=== PATIENT | male | born 1950 | race Two or more races ===

== ENCOUNTER 2022-10-06 09:50 | Inpatient (IN) | payer MEDICAID, OTHER ==
[~2022-10-06] VITALS: Ht 165.1 cm; Wt 75.3 kg
[2022-10-06 10:31] LABS: Basophils # (auto) 0.1 10 ^3/uL (0-0.2); Basophils % (auto) 1.1 % (0.0-2.0); Eosinophils # (auto) 0.2 10 ^3/uL (0-0.8); Eosinophils % (auto) 2.6 % (0.0-7.0); Hematocrit 41.4 % (41.0-53.0); Hemoglobin 13.9 g/dL (13.5-17.5); Lymphocytes # (auto) 0.8 10 ^3/uL (0.4-5.4); Mean Corpuscular Hemoglobin 29.4 pg (28.0-32.0); Mean Corpuscular Hgb Conc. 33.7 g/dL (32.0-36.0); Mean Corpuscular Volume 87.3 fL (80.0-100.0); Monocytes # (auto) 0.5 10 ^3/uL (0-1.3); Neutrophils # (auto) 5.9 10 ^3/uL (1.6-8.6); Neutrophils % (auto) 78.3 % (37.0-80.0); Nucleated Red Blood Cells % 0.1 %; Red Blood Cells 4.74 10^6/uL (4.5-5.90); Red Cell Distribution Width 14.2 % (11.8-14.3); White Blood Cell 7.5 10^3/uL (4.4-10.8)
[2022-10-06 10:56] LABS: Potassium 3.9 mmol/L (3.5-5.1)
[2022-10-06 11:01] LABS: Albumin 2.7 g/dL (3.4-5.0); BUN/Creatinine Ratio 10.8 (10.0-20.0); Bilirubin, Total 0.4 mg/dL (0.2-1.0); Calcium 8.3 mg/dL (8.5-10.1); Total Protein 7.3 g/dL (6.4-8.2)
[2022-10-06] MEDS ORDERED: IOHEXOL 350 MG/ML 100ML IJ ONE (14:29)
[2022-10-06] MEDS ORDERED: SODIUM CHLORIDE 0.9% 1,000 ML IV ONE (14:30)
[2022-10-06] MEDS ORDERED: MORPHINE SULFATE INJ 2 MG/ml SYRG IV PRN ×2 (14:30)
[2022-10-06] MEDS ORDERED: ASPirin 81 mg TAB PO ONE (14:30)
[2022-10-06] MEDS ORDERED: NITROGLYCERIN 0.4 MG SL TAB SL PRN (14:30)
[2022-10-06] MEDS ORDERED: ENOXAPARIN SOD 80 MG/0.8ML SYRINGE SC ONE (14:45)
[2022-10-06 15:10] LABS: Cholesterol 135 mg/dL (< 200); Triglycerides 92 mg/dL (< 150)
[2022-10-06 15:12] LABS: HDL Cholesterol 36 mg/dL (40-59); LDL Cholesterol 89 mg/dL (< 100)
[2022-10-06 15:38] LABS: Free T3 2.65 pg/mL (2.3-4.2); Free T4 (Free Thyroxine) 1.03 ng/dL (0.89-1.76)
[2022-10-06] MEDS ORDERED: ALBUTEROL SULF 2.5 MG/0.5ML(0.5%) NEB SOLN NEB SCH (18:00)
[2022-10-06] MEDS ORDERED: IPRATROPIUM BROM 0.5 MG/2.5ML INH SOL NEB SCH (18:00)
[2022-10-06] MEDS: ATORVASTATIN 20 MG TAB PO SCH (22:34)
[2022-10-06 22:35] VITALS: BP 102/51
[2022-10-06] MEDS: HYDROcodone-ACET 5/325MG TAB PO PRN (22:35)
[2022-10-07] MEDS: ALBUTEROL SULF 2.5 MG/0.5ML(0.5%) NEB SOLN NEB SCH ×4 (00:15→18:49)
[2022-10-07] MEDS: IPRATROPIUM BROM 0.5 MG/2.5ML INH SOL NEB SCH ×4 (00:15→18:49)
[2022-10-07 00:55] VITALS: BP 107/56
[2022-10-07] MEDS ORDERED: CETI-120 PO (01:29)
[2022-10-07] MEDS ORDERED: FLUT50SP NAS (01:29)
[2022-10-07] MEDS ORDERED: LEVO50TA7 PO (01:29)
[2022-10-07] MEDS ORDERED: OMEP1CAP70 PO (01:29)
[2022-10-07] MEDS ORDERED: GABA-1250 PO (01:29)
[2022-10-07] MEDS ORDERED: TRAM50TA2 PO (01:29)
[2022-10-07] MEDS ORDERED: TIZA-142 PO (01:29)
[2022-10-07 05:00] VITALS: BP 129/73
[2022-10-07] MEDS: HYDROcodone-ACET 5/325MG TAB PO PRN (06:14)
[2022-10-07 06:22] LABS: Basophils # (auto) 0 10 ^3/uL (0-0.2); Basophils % (auto) 0.6 % (0.0-2.0); Eosinophils # (auto) 0.5 10 ^3/uL (0-0.8); Eosinophils % (auto) 5.9 % (0.0-7.0); Hematocrit 40.6 % (41.0-53.0); Hemoglobin 13.6 g/dL (13.5-17.5); Lymphocytes # (auto) 0.9 10 ^3/uL (0.4-5.4); Lymphocytes % (auto) 10.5 % (10.0-50.0); Mean Corpuscular Hemoglobin 29.3 pg (28.0-32.0); Mean Corpuscular Hgb Conc. 33.4 g/dL (32.0-36.0); Mean Corpuscular Volume 87.5 fL (80.0-100.0); Monocytes # (auto) 0.4 10 ^3/uL (0-1.3); Monocytes % (auto) 4.9 % (0.0-12.0); Neutrophils # (auto) 6.4 10 ^3/uL (1.6-8.6); Neutrophils % (auto) 78.1 % (37.0-80.0); Nucleated Red Blood Cells % 0.2 %; Red Blood Cells 4.64 10^6/uL (4.5-5.90); Red Cell Distribution Width 14.4 % (11.8-14.3); White Blood Cell 8.2 10^3/uL (4.4-10.8)
[2022-10-07 06:33] LABS: Albumin 2.3 g/dL (3.4-5.0); BUN/Creatinine Ratio 11.1 (10.0-20.0); Calcium 8.1 mg/dL (8.5-10.1); Potassium 4.2 mmol/L (3.5-5.1)
[2022-10-07 06:36] LABS: Bilirubin, Total 0.4 mg/dL (0.2-1.0); Total Protein 6.8 g/dL (6.4-8.2)
[2022-10-07] MEDS: guaiFENesin-DM 100/10mg/5ml SYR PO PRN ×3 (06:41→21:36)
[2022-10-07] MEDS ORDERED: methylPREDNISolone SOD SUCC 125 MG/2 ML VL IV ONE ×2 (06:45→07:15)
[2022-10-07] MEDS ORDERED: methylPREDNISolone ACETATE 80 MG/ML VL IM ONE (06:45)
[2022-10-07 08:00] VITALS: BP 98/62
[2022-10-07 08:59] VITALS: BP 98/62
[2022-10-07] MEDS: ASPirin 81 mg TAB PO SCH (09:40)
[2022-10-07] MEDS: PANTOPRAZOLE 40 MG/10 ML VIAL INJ IV SCH (09:40)
[2022-10-07] MEDS: ENOXAPARIN SOD 40 MG/0.4 ML SYRINGE SC SCH (09:41)
[2022-10-07] MEDS ORDERED: cefTRIAXone 1GM/50ML D5W 50 ML IV ONE (12:30)
[2022-10-07 12:52] VITALS: BP 106/61
[2022-10-07] MEDS ORDERED: AZITHROMYCIN 500MG/ 250ML 250 ML IV ONE (13:30)
[2022-10-07] MEDS: ATORVASTATIN 20 MG TAB PO SCH (21:36)
[2022-10-07 22:00] VITALS: BP 116/68
[2022-10-08 05:00] VITALS: BP 107/58
[2022-10-08 05:53] LABS: Basophils # (auto) 0 10 ^3/uL (0-0.2); Basophils % (auto) 0.4 % (0.0-2.0); Eosinophils # (auto) 0 10 ^3/uL (0-0.8); Eosinophils % (auto) 0.2 % (0.0-7.0); Hematocrit 38.6 % (41.0-53.0); Hemoglobin 12.9 g/dL (13.5-17.5); Lymphocytes # (auto) 0.9 10 ^3/uL (0.4-5.4); Lymphocytes % (auto) 8.7 % (10.0-50.0); Mean Corpuscular Hemoglobin 29.6 pg (28.0-32.0); Mean Corpuscular Hgb Conc. 33.4 g/dL (32.0-36.0); Mean Corpuscular Volume 88.7 fL (80.0-100.0); Monocytes # (auto) 0.6 10 ^3/uL (0-1.3); Monocytes % (auto) 5.6 % (0.0-12.0); Neutrophils # (auto) 8.9 10 ^3/uL (1.6-8.6); Neutrophils % (auto) 85.1 % (37.0-80.0); Red Blood Cells 4.36 10^6/uL (4.5-5.90); Red Cell Distribution Width 14.4 % (11.8-14.3); White Blood Cell 10.4 10^3/uL (4.4-10.8)
[2022-10-08 06:03] LABS: BUN/Creatinine Ratio 15.3 (10.0-20.0); Calcium 8.2 mg/dL (8.5-10.1); Potassium 3.8 mmol/L (3.5-5.1)
[2022-10-08] MEDS: ALBUTEROL SULF 2.5 MG/0.5ML(0.5%) NEB SOLN NEB SCH ×3 (06:21→18:51)
[2022-10-08] MEDS: IPRATROPIUM BROM 0.5 MG/2.5ML INH SOL NEB SCH ×3 (06:21→18:51)
[2022-10-08] MEDS: cefTRIAXone 1GM/50ML D5W 50 ML IV SCH (08:22)
[2022-10-08] MEDS: LEVOTHYROXINE SODIUM 50 MCG TAB PO SCH (08:23)
[2022-10-08 09:00] VITALS: BP 101/57
[2022-10-08] MEDS: AZITHROMYCIN 500MG/ 250ML 250 ML IV SCH (09:30)
[2022-10-08] MEDS: PANTOPRAZOLE 40 MG/10 ML VIAL INJ IV SCH (09:30)
[2022-10-08] MEDS: ENOXAPARIN SOD 40 MG/0.4 ML SYRINGE SC SCH (09:30)
[2022-10-08] MEDS: ASPirin 81 mg TAB PO SCH (09:30)
[2022-10-08 13:00] VITALS: BP 100/58
[2022-10-08 17:14] VITALS: BP 105/59
[2022-10-08] MEDS: ATORVASTATIN 20 MG TAB PO SCH (21:07)
[2022-10-08] MEDS: guaiFENesin-DM 100/10mg/5ml SYR PO PRN (21:08)
[2022-10-08 22:00] VITALS: BP 103/54
[2022-10-09] MEDS: IPRATROPIUM BROM 0.5 MG/2.5ML INH SOL NEB PRN ×2 (01:13→10:33)
[2022-10-09] MEDS: ALBUTEROL SULF 2.5 MG/0.5ML(0.5%) NEB SOLN NEB PRN ×2 (01:13→10:34)
[2022-10-09 05:00] VITALS: BP 117/57
[2022-10-09] MEDS: LEVOTHYROXINE SODIUM 50 MCG TAB PO SCH (06:46)
[2022-10-09] MEDS: ALBUTEROL SULF 2.5 MG/0.5ML(0.5%) NEB SOLN NEB SCH ×2 (07:23→18:07)
[2022-10-09] MEDS: cefTRIAXone 1GM/50ML D5W 50 ML IV SCH (08:14)
[2022-10-09 09:23] VITALS: BP 111/55
[2022-10-09] MEDS: ASPirin 81 mg TAB PO SCH (09:47)
[2022-10-09] MEDS: ENOXAPARIN SOD 40 MG/0.4 ML SYRINGE SC SCH (09:47)
[2022-10-09] MEDS: PANTOPRAZOLE 40 MG/10 ML VIAL INJ IV SCH (09:48)
[2022-10-09] MEDS: AZITHROMYCIN 500MG/ 250ML 250 ML IV SCH (09:48)
[2022-10-09 12:52] VITALS: BP 104/59
[2022-10-09 17:28] VITALS: BP 104/59
[2022-10-09] MEDS: IPRATROPIUM BROM 0.5 MG/2.5ML INH SOL NEB SCH (18:07)
[2022-10-09] MEDS: guaiFENesin-DM 100/10mg/5ml SYR PO PRN (21:19)
[2022-10-09] MEDS: ACETAMINOPHEN 325 MG TAB PO PRN (21:19)
[2022-10-09] MEDS: ATORVASTATIN 20 MG TAB PO SCH (21:20)
[2022-10-10 02:56] VITALS: BP 109/55
[2022-10-10 05:00] VITALS: BP 101/57
[2022-10-10 05:27] LABS: Basophils # (auto) 0.1 10 ^3/uL (0-0.2); Basophils % (auto) 0.9 % (0.0-2.0); Eosinophils # (auto) 0.8 10 ^3/uL (0-0.8); Eosinophils % (auto) 10.9 % (0.0-7.0); Hematocrit 37.7 % (41.0-53.0); Hemoglobin 12.8 g/dL (13.5-17.5); Lymphocytes # (auto) 0.8 10 ^3/uL (0.4-5.4); Lymphocytes % (auto) 11.6 % (10.0-50.0); Mean Corpuscular Hemoglobin 29.5 pg (28.0-32.0); Mean Corpuscular Volume 86.8 fL (80.0-100.0); Monocytes # (auto) 0.4 10 ^3/uL (0-1.3); Monocytes % (auto) 5.9 % (0.0-12.0); Neutrophils # (auto) 5.1 10 ^3/uL (1.6-8.6); Neutrophils % (auto) 70.7 % (37.0-80.0); Nucleated Red Blood Cells % 0.1 %; Red Blood Cells 4.34 10^6/uL (4.5-5.90); Red Cell Distribution Width 14.5 % (11.8-14.3); White Blood Cell 7.2 10^3/uL (4.4-10.8)
[2022-10-10 05:49] LABS: Calcium 8.3 mg/dL (8.5-10.1)
[2022-10-10] MEDS: guaiFENesin-DM 100/10mg/5ml SYR PO PRN (06:39)
[2022-10-10] MEDS: LEVOTHYROXINE SODIUM 50 MCG TAB PO SCH (06:40)
[2022-10-10] MEDS: ALBUTEROL SULF 2.5 MG/0.5ML(0.5%) NEB SOLN NEB SCH ×3 (07:00→18:52)
[2022-10-10] MEDS: IPRATROPIUM BROM 0.5 MG/2.5ML INH SOL NEB SCH ×3 (07:00→18:52)
[2022-10-10] MEDS: cefTRIAXone 1GM/50ML D5W 50 ML IV SCH (08:51)
[2022-10-10 09:00] VITALS: BP 106/57
[2022-10-10] MEDS: ENOXAPARIN SOD 40 MG/0.4 ML SYRINGE SC SCH (09:39)
[2022-10-10] MEDS: PANTOPRAZOLE 40 MG/10 ML VIAL INJ IV SCH (09:39)
[2022-10-10] MEDS: ASPirin 81 mg TAB PO SCH (09:39)
[2022-10-10] MEDS: AZITHROMYCIN 500MG/ 250ML 250 ML IV SCH (09:53)
[2022-10-10 13:00] VITALS: BP 99/54
[2022-10-10 16:58] VITALS: BP 106/61
[2022-10-10 22:00] VITALS: BP 111/64
[2022-10-10] MEDS: ATORVASTATIN 20 MG TAB PO SCH (22:16)
[2022-10-10] MEDS: HYDROcodone-ACET 5/325MG TAB PO PRN (22:20)
[2022-10-11 05:00] VITALS: BP 101/55
[2022-10-11] MEDS: LEVOTHYROXINE SODIUM 50 MCG TAB PO SCH (06:10)
[2022-10-11] MEDS: HYDROcodone-ACET 5/325MG TAB PO PRN ×3 (06:11→19:37)
[2022-10-11] MEDS: ALBUTEROL SULF 2.5 MG/0.5ML(0.5%) NEB SOLN NEB SCH ×3 (06:39→19:03)
[2022-10-11] MEDS: IPRATROPIUM BROM 0.5 MG/2.5ML INH SOL NEB SCH ×3 (06:39→19:03)
[2022-10-11] MEDS: cefTRIAXone 1GM/50ML D5W 50 ML IV SCH (08:22)
[2022-10-11 09:00] VITALS: BP 105/56
[2022-10-11] MEDS: PANTOPRAZOLE 40 MG/10 ML VIAL INJ IV SCH (09:30)
[2022-10-11] MEDS: ENOXAPARIN SOD 40 MG/0.4 ML SYRINGE SC SCH (09:31)
[2022-10-11] MEDS: AZITHROMYCIN 500MG/ 250ML 250 ML IV SCH (09:31)
[2022-10-11] MEDS: ASPirin 81 mg TAB PO SCH (09:31)
[2022-10-11 13:00] VITALS: BP 100/51
[2022-10-11 17:00] VITALS: BP 101/60
[2022-10-11 22:00] VITALS: BP 106/53
[2022-10-11] MEDS: guaiFENesin-DM 100/10mg/5ml SYR PO PRN (22:02)
[2022-10-11] MEDS: ATORVASTATIN 20 MG TAB PO SCH (22:02)
[2022-10-12 05:00] VITALS: BP 114/57
[2022-10-12] MEDS: HYDROcodone-ACET 5/325MG TAB PO PRN ×4 (05:36→20:48)
[2022-10-12] MEDS: guaiFENesin-DM 100/10mg/5ml SYR PO PRN ×3 (05:37→22:02)
[2022-10-12] MEDS: LEVOTHYROXINE SODIUM 50 MCG TAB PO SCH (06:32)
[2022-10-12] MEDS: IPRATROPIUM BROM 0.5 MG/2.5ML INH SOL NEB SCH ×3 (07:11→18:47)
[2022-10-12] MEDS: ALBUTEROL SULF 2.5 MG/0.5ML(0.5%) NEB SOLN NEB SCH ×3 (07:11→18:47)
[2022-10-12 08:00] VITALS: BP 114/58
[2022-10-12] MEDS: cefTRIAXone 1GM/50ML D5W 50 ML IV SCH (08:49)
[2022-10-12] MEDS: PANTOPRAZOLE 40 MG/10 ML VIAL INJ IV SCH (08:49)
[2022-10-12] MEDS: ENOXAPARIN SOD 40 MG/0.4 ML SYRINGE SC SCH (08:49)
[2022-10-12] MEDS: ASPirin 81 mg TAB PO SCH (08:50)
[2022-10-12 09:00] VITALS: BP 114/58
[2022-10-12] MEDS: AZITHROMYCIN 500MG/ 250ML 250 ML IV SCH (10:05)
[2022-10-12 13:00] VITALS: BP 115/67
[2022-10-12 16:47] VITALS: BP 106/53
[2022-10-12] MEDS: ATORVASTATIN 20 MG TAB PO SCH (21:59)
[2022-10-12 22:00] VITALS: BP 108/61
[2022-10-13] VITALS (8 sets, daily range): BP systolic 105–117; BP diastolic 59–64
[2022-10-13] MEDS: HYDROcodone-ACET 5/325MG TAB PO PRN ×2 (03:00→20:25)
[2022-10-13] MEDS: LEVOTHYROXINE SODIUM 50 MCG TAB PO SCH (06:11)
[2022-10-13 06:16] LABS: Basophils # (auto) 0.1 10 ^3/uL (0-0.2); Eosinophils # (auto) 0.7 10 ^3/uL (0-0.8); Eosinophils % (auto) 9.4 % (0.0-7.0); Hematocrit 39.1 % (41.0-53.0); Hemoglobin 13.2 g/dL (13.5-17.5); Lymphocytes # (auto) 0.6 10 ^3/uL (0.4-5.4); Lymphocytes % (auto) 8.1 % (10.0-50.0); Mean Corpuscular Hemoglobin 29.2 pg (28.0-32.0); Mean Corpuscular Hgb Conc. 33.8 g/dL (32.0-36.0); Mean Corpuscular Volume 86.4 fL (80.0-100.0); Monocytes # (auto) 0.4 10 ^3/uL (0-1.3); Monocytes % (auto) 5.6 % (0.0-12.0); Neutrophils # (auto) 5.8 10 ^3/uL (1.6-8.6); Neutrophils % (auto) 75.9 % (37.0-80.0); Nucleated Red Blood Cells % 0.3 %; Red Blood Cells 4.52 10^6/uL (4.5-5.90); Red Cell Distribution Width 14.1 % (11.8-14.3); White Blood Cell 7.7 10^3/uL (4.4-10.8)
[2022-10-13] MEDS: IPRATROPIUM BROM 0.5 MG/2.5ML INH SOL NEB SCH ×3 (06:34→18:40)
[2022-10-13] MEDS: ALBUTEROL SULF 2.5 MG/0.5ML(0.5%) NEB SOLN NEB SCH ×3 (06:35→18:40)
[2022-10-13 06:36] LABS: BUN/Creatinine Ratio 14.6 (10.0-20.0); Calcium 8.4 mg/dL (8.5-10.1)
[2022-10-13] MEDS: cefTRIAXone 1GM/50ML D5W 50 ML IV SCH (10:24)
[2022-10-13] MEDS: ENOXAPARIN SOD 40 MG/0.4 ML SYRINGE SC SCH (10:25)
[2022-10-13] MEDS: PANTOPRAZOLE 40 MG/10 ML VIAL INJ IV SCH (10:25)
[2022-10-13] MEDS: ASPirin 81 mg TAB PO SCH (10:25)
[2022-10-13] MEDS: guaiFENesin-DM 100/10mg/5ml SYR PO PRN ×2 (10:25→20:24)
[2022-10-13] MEDS: AZITHROMYCIN 500MG/ 250ML 250 ML IV SCH (12:14)
[2022-10-13] MEDS: ATORVASTATIN 20 MG TAB PO SCH (21:47)
[2022-10-14] MEDS: HYDROcodone-ACET 5/325MG TAB PO PRN ×3 (04:49→20:23)
[2022-10-14 05:00] VITALS: BP 117/72
[2022-10-14] MEDS: IPRATROPIUM BROM 0.5 MG/2.5ML INH SOL NEB SCH ×3 (06:13→18:49)
[2022-10-14] MEDS: ALBUTEROL SULF 2.5 MG/0.5ML(0.5%) NEB SOLN NEB SCH ×3 (06:13→18:49)
[2022-10-14] MEDS: LEVOTHYROXINE SODIUM 50 MCG TAB PO SCH (06:34)
[2022-10-14 08:40] VITALS: BP 118/67
[2022-10-14] MEDS ORDERED: FUROSEMIDE 20 MG/2 ML VIAL IV ONE (10:00)
[2022-10-14] MEDS: ENOXAPARIN SOD 40 MG/0.4 ML SYRINGE SC SCH (10:39)
[2022-10-14] MEDS: ASPirin 81 mg TAB PO SCH (10:39)
[2022-10-14] MEDS: cefTRIAXone 1GM/50ML D5W 50 ML IV SCH (10:39)
[2022-10-14] MEDS: PANTOPRAZOLE 40 MG/10 ML VIAL INJ IV SCH (10:39)
[2022-10-14] MEDS: AZITHROMYCIN 500MG/ 250ML 250 ML IV SCH (12:29)
[2022-10-14 13:00] VITALS: BP 109/66
[2022-10-14 16:30] VITALS: BP 106/62
[2022-10-14 20:00] VITALS: BP 112/62
[2022-10-14] MEDS: ATORVASTATIN 20 MG TAB PO SCH (21:05)
[2022-10-14 22:00] VITALS: BP 112/62
[2022-10-15] VITALS (7 sets, daily range): BP systolic 102–120; BP diastolic 65–72
[2022-10-15] MEDS: HYDROcodone-ACET 5/325MG TAB PO PRN ×3 (04:55→21:38)
[2022-10-15 05:50] LABS: Basophils # (auto) 0.1 10 ^3/uL (0-0.2); Basophils % (auto) 1.2 % (0.0-2.0); Eosinophils # (auto) 0.5 10 ^3/uL (0-0.8); Eosinophils % (auto) 7.9 % (0.0-7.0); Hematocrit 41.9 % (41.0-53.0); Hemoglobin 14.2 g/dL (13.5-17.5); Lymphocytes # (auto) 0.9 10 ^3/uL (0.4-5.4); Lymphocytes % (auto) 15.7 % (10.0-50.0); Mean Corpuscular Hemoglobin 29.5 pg (28.0-32.0); Mean Corpuscular Volume 86.9 fL (80.0-100.0); Monocytes # (auto) 0.5 10 ^3/uL (0-1.3); Monocytes % (auto) 8.2 % (0.0-12.0); Red Blood Cells 4.82 10^6/uL (4.5-5.90); Red Cell Distribution Width 14.2 % (11.8-14.3)
[2022-10-15 06:03] LABS: BUN/Creatinine Ratio 15.9 (10.0-20.0); Calcium 8.8 mg/dL (8.5-10.1); Potassium 3.8 mmol/L (3.5-5.1)
[2022-10-15] MEDS: LEVOTHYROXINE SODIUM 50 MCG TAB PO SCH (06:11)
[2022-10-15] MEDS: ALBUTEROL SULF 2.5 MG/0.5ML(0.5%) NEB SOLN NEB SCH ×3 (07:46→18:05)
[2022-10-15] MEDS: IPRATROPIUM BROM 0.5 MG/2.5ML INH SOL NEB SCH ×3 (07:46→18:05)
[2022-10-15] MEDS: FUROSEMIDE 20 MG/2 ML VIAL IV SCH (10:08)
[2022-10-15] MEDS: PANTOPRAZOLE 40 MG/10 ML VIAL INJ IV SCH (10:08)
[2022-10-15] MEDS: cefTRIAXone 1GM/50ML D5W 50 ML IV SCH (10:08)
[2022-10-15] MEDS: ASPirin 81 mg TAB PO SCH (10:09)
[2022-10-15] MEDS: ENOXAPARIN SOD 40 MG/0.4 ML SYRINGE SC SCH (10:09)
[2022-10-15] MEDS: guaiFENesin-DM 100/10mg/5ml SYR PO PRN (10:09)
[2022-10-15] MEDS ORDERED: PIPERACILLIN-TAZOB 3.375GM 100 ML IV ONE (11:00)
[2022-10-15] MEDS: PIPERACILLIN-TAZOB 3.375GM 100 ML IV SCH (18:49)
[2022-10-15] MEDS ORDERED: MORPHINE SULFATE INJ 2 MG/ml SYRG IV PRN (21:00)
[2022-10-15] MEDS ORDERED: MORPHINE SULFATE 4 MG/ML SYR/VIAL IV PRN (21:00)
[2022-10-15] MEDS: ATORVASTATIN 20 MG TAB PO SCH (21:38)
[2022-10-16] VITALS (7 sets, daily range): BP systolic 102–111; BP diastolic 57–66
[2022-10-16] MEDS: PIPERACILLIN-TAZOB 3.375GM 100 ML IV SCH ×3 (03:06→18:28)
[2022-10-16] MEDS: LEVOTHYROXINE SODIUM 50 MCG TAB PO SCH (06:47)
[2022-10-16] MEDS: HYDROcodone-ACET 5/325MG TAB PO PRN (06:47)
[2022-10-16] MEDS: IPRATROPIUM BROM 0.5 MG/2.5ML INH SOL NEB SCH ×2 (06:55→18:10)
[2022-10-16] MEDS: ALBUTEROL SULF 2.5 MG/0.5ML(0.5%) NEB SOLN NEB SCH ×3 (06:55→18:09)
[2022-10-16] MEDS: guaiFENesin-DM 100/10mg/5ml SYR PO PRN (09:30)
[2022-10-16] MEDS: ENOXAPARIN SOD 40 MG/0.4 ML SYRINGE SC SCH (09:31)
[2022-10-16] MEDS: ASPirin 81 mg TAB PO SCH (09:31)
[2022-10-16] MEDS: FUROSEMIDE 20 MG/2 ML VIAL IV SCH (09:32)
[2022-10-16] MEDS: PANTOPRAZOLE 40 MG/10 ML VIAL INJ IV SCH (09:32)
[2022-10-16] MEDS: guaiFENesin-CODEINE Liq 5 ML UD PO PRN ×2 (18:28→22:41)
[2022-10-16] MEDS: ATORVASTATIN 20 MG TAB PO SCH (21:48)
[2022-10-17] MEDS: PIPERACILLIN-TAZOB 3.375GM 100 ML IV SCH ×2 (03:34→10:34)
[2022-10-17 05:00] VITALS: BP 103/62
[2022-10-17 05:54] LABS: Basophils # (auto) 0.1 10 ^3/uL (0-0.2); Basophils % (auto) 1.1 % (0.0-2.0); Eosinophils # (auto) 0.5 10 ^3/uL (0-0.8); Eosinophils % (auto) 6.6 % (0.0-7.0); Hematocrit 42.3 % (41.0-53.0); Hemoglobin 14.3 g/dL (13.5-17.5); Lymphocytes # (auto) 0.7 10 ^3/uL (0.4-5.4); Lymphocytes % (auto) 10.2 % (10.0-50.0); Mean Corpuscular Hemoglobin 28.9 pg (28.0-32.0); Mean Corpuscular Hgb Conc. 33.7 g/dL (32.0-36.0); Mean Corpuscular Volume 85.6 fL (80.0-100.0); Monocytes # (auto) 0.5 10 ^3/uL (0-1.3); Monocytes % (auto) 7.8 % (0.0-12.0); Neutrophils # (auto) 5.1 10 ^3/uL (1.6-8.6); Neutrophils % (auto) 74.3 % (37.0-80.0); Nucleated Red Blood Cells % 0.1 %; Red Blood Cells 4.94 10^6/uL (4.5-5.90); Red Cell Distribution Width 14.4 % (11.8-14.3); White Blood Cell 6.9 10^3/uL (4.4-10.8)
[2022-10-17] MEDS: IPRATROPIUM BROM 0.5 MG/2.5ML INH SOL NEB SCH ×3 (05:57→19:01)
[2022-10-17] MEDS: ALBUTEROL SULF 2.5 MG/0.5ML(0.5%) NEB SOLN NEB SCH ×3 (05:57→19:01)
[2022-10-17 06:13] LABS: BUN/Creatinine Ratio 12.5 (10.0-20.0); Calcium 8.8 mg/dL (8.5-10.1); Potassium 3.4 mmol/L (3.5-5.1)
[2022-10-17] MEDS: LEVOTHYROXINE SODIUM 50 MCG TAB PO SCH (06:38)
[2022-10-17 07:30] VITALS: BP 108/57
[2022-10-17 09:00] VITALS: BP 104/56
[2022-10-17] MEDS: ASPirin 81 mg TAB PO SCH (09:31)
[2022-10-17] MEDS: guaiFENesin-CODEINE Liq 5 ML UD PO PRN ×2 (09:31→21:16)
[2022-10-17] MEDS: ENOXAPARIN SOD 40 MG/0.4 ML SYRINGE SC SCH (09:32)
[2022-10-17] MEDS: FUROSEMIDE 20 MG/2 ML VIAL IV SCH (09:33)
[2022-10-17] MEDS: PANTOPRAZOLE 40 MG/10 ML VIAL INJ IV SCH (09:33)
[2022-10-17 13:00] VITALS: BP 115/58
[2022-10-17] MEDS ORDERED: VANCOMYCIN PER PHARMACY 0 MG IV SCH (13:45)
[2022-10-17] MEDS: MEROPENEM 1GM IVPB 100 ML IV SCH ×2 (15:25→21:10)
[2022-10-17] MEDS: VANCOMYCIN 1GM/250ML 250 ML IV SCH (16:14)
[2022-10-17 17:00] VITALS: BP 113/62
[2022-10-17] MEDS: ATORVASTATIN 20 MG TAB PO SCH (21:10)
[2022-10-17 22:00] VITALS: BP 113/68
[2022-10-18] MEDS: VANCOMYCIN 1GM/250ML 250 ML IV SCH ×3 (01:32→21:54)
[2022-10-18 05:00] VITALS: BP 111/69
[2022-10-18] MEDS: MEROPENEM 1GM IVPB 100 ML IV SCH ×3 (06:42→22:00)
[2022-10-18] MEDS: LEVOTHYROXINE SODIUM 50 MCG TAB PO SCH (06:42)
[2022-10-18] MEDS: IPRATROPIUM BROM 0.5 MG/2.5ML INH SOL NEB SCH ×5 (06:53→18:19)
[2022-10-18] MEDS: ALBUTEROL SULF 2.5 MG/0.5ML(0.5%) NEB SOLN NEB SCH ×5 (06:53→18:18)
[2022-10-18 09:00] VITALS: BP 107/58
[2022-10-18] MEDS: PANTOPRAZOLE 40 MG/10 ML VIAL INJ IV SCH (10:40)
[2022-10-18] MEDS: ASPirin 81 mg TAB PO SCH (10:40)
[2022-10-18] MEDS: FUROSEMIDE 20 MG/2 ML VIAL IV SCH (10:40)
[2022-10-18] MEDS: ENOXAPARIN SOD 40 MG/0.4 ML SYRINGE SC SCH (10:41)
[2022-10-18 13:00] VITALS: BP 101/65
[2022-10-18 17:00] VITALS: BP 122/66
[2022-10-18] MEDS: ATORVASTATIN 20 MG TAB PO SCH (21:54)
[2022-10-18] MEDS: guaiFENesin-CODEINE Liq 5 ML UD PO PRN (21:55)
[2022-10-18 22:00] VITALS: BP 116/62
[2022-10-19 01:00] VITALS: BP 116/62
[2022-10-19 05:00] VITALS: BP 114/62
[2022-10-19 05:51] LABS: Basophils # (auto) 0.1 10 ^3/uL (0-0.2); Basophils % (auto) 1.4 % (0.0-2.0); Eosinophils # (auto) 0.6 10 ^3/uL (0-0.8); Eosinophils % (auto) 8.1 % (0.0-7.0); Hematocrit 41.4 % (41.0-53.0); Hemoglobin 14.1 g/dL (13.5-17.5); Lymphocytes # (auto) 0.9 10 ^3/uL (0.4-5.4); Lymphocytes % (auto) 11.6 % (10.0-50.0); Mean Corpuscular Hemoglobin 29.1 pg (28.0-32.0); Mean Corpuscular Volume 85.5 fL (80.0-100.0); Monocytes # (auto) 0.6 10 ^3/uL (0-1.3); Monocytes % (auto) 8.2 % (0.0-12.0); Neutrophils # (auto) 5.3 10 ^3/uL (1.6-8.6); Neutrophils % (auto) 70.7 % (37.0-80.0); Nucleated Red Blood Cells % 0.3 %; Red Blood Cells 4.84 10^6/uL (4.5-5.90); Red Cell Distribution Width 14.2 % (11.8-14.3); White Blood Cell 7.4 10^3/uL (4.4-10.8)
[2022-10-19 06:01] LABS: BUN/Creatinine Ratio 11.1 (10.0-20.0); Calcium 8.6 mg/dL (8.5-10.1); Potassium 3.3 mmol/L (3.5-5.1)
[2022-10-19 06:20] LABS: CRP High Sensitivity 6.36 mg/dL (< 0.3)
[2022-10-19] MEDS: LEVOTHYROXINE SODIUM 50 MCG TAB PO SCH (06:29)
[2022-10-19] MEDS: MEROPENEM 1GM IVPB 100 ML IV SCH ×3 (06:30→21:00)
[2022-10-19] MEDS: IPRATROPIUM BROM 0.5 MG/2.5ML INH SOL NEB SCH ×3 (07:26→19:34)
[2022-10-19] MEDS: ALBUTEROL SULF 2.5 MG/0.5ML(0.5%) NEB SOLN NEB SCH ×3 (07:26→19:34)
[2022-10-19] MEDS: VANCOMYCIN 1GM/250ML 250 ML IV SCH ×2 (08:57→18:08)
[2022-10-19 09:00] VITALS: BP 111/45
[2022-10-19] MEDS: ENOXAPARIN SOD 40 MG/0.4 ML SYRINGE SC SCH (10:25)
[2022-10-19] MEDS: ASPirin 81 mg TAB PO SCH (10:26)
[2022-10-19] MEDS ORDERED: methylPREDNISolone SOD SUCC 40 MG/ML VL IV ONE (11:00)
[2022-10-19] MEDS: FUROSEMIDE 20 MG/2 ML VIAL IV SCH (11:45)
[2022-10-19] MEDS: PANTOPRAZOLE 40 MG/10 ML VIAL INJ IV SCH (11:46)
[2022-10-19 13:00] VITALS: BP 103/59
[2022-10-19 17:00] VITALS: BP 100/63
[2022-10-19] MEDS: ATORVASTATIN 20 MG TAB PO SCH (21:00)
[2022-10-19 21:40] VITALS: BP 121/69
[2022-10-20] MEDS: VANCOMYCIN 1GM/250ML 250 ML IV SCH ×3 (03:08→22:27)
[2022-10-20 04:54] VITALS: BP 118/66
[2022-10-20] MEDS: HYDROcodone-ACET 5/325MG TAB PO PRN ×3 (05:08→22:32)
[2022-10-20] MEDS: MEROPENEM 1GM IVPB 100 ML IV SCH ×2 (05:09→14:00)
[2022-10-20] MEDS: IPRATROPIUM BROM 0.5 MG/2.5ML INH SOL NEB SCH ×3 (05:47→18:48)
[2022-10-20] MEDS: ALBUTEROL SULF 2.5 MG/0.5ML(0.5%) NEB SOLN NEB SCH ×3 (05:47→18:48)
[2022-10-20] MEDS: LEVOTHYROXINE SODIUM 50 MCG TAB PO SCH (06:11)
[2022-10-20 08:10] VITALS: BP 112/63
[2022-10-20] MEDS: ASPirin 81 mg TAB PO SCH (09:49)
[2022-10-20] MEDS: ENOXAPARIN SOD 40 MG/0.4 ML SYRINGE SC SCH (09:49)
[2022-10-20] MEDS: methylPREDNISolone SOD SUCC 40 MG/ML VL IV SCH (11:46)
[2022-10-20] MEDS: PANTOPRAZOLE 40 MG/10 ML VIAL INJ IV SCH (11:46)
[2022-10-20] MEDS: FUROSEMIDE 20 MG/2 ML VIAL IV SCH (11:46)
[2022-10-20 13:00] VITALS: BP 107/62
[2022-10-20 17:00] VITALS: BP 103/63
[2022-10-20 22:00] VITALS: BP 121/61
[2022-10-20] MEDS: ATORVASTATIN 20 MG TAB PO SCH (22:26)
[2022-10-21] VITALS (7 sets, daily range): BP systolic 106–137; BP diastolic 59–71
[2022-10-21] MEDS: MEROPENEM 1GM IVPB 100 ML IV SCH ×3 (00:04→15:47)
[2022-10-21 05:41] LABS: Basophils # (auto) 0.1 10 ^3/uL (0-0.2); Basophils % (auto) 0.8 % (0.0-2.0); Eosinophils # (auto) 0.1 10 ^3/uL (0-0.8); Eosinophils % (auto) 1.2 % (0.0-7.0); Hematocrit 39.6 % (41.0-53.0); Hemoglobin 13.5 g/dL (13.5-17.5); Lymphocytes # (auto) 1.2 10 ^3/uL (0.4-5.4); Lymphocytes % (auto) 15.9 % (10.0-50.0); Mean Corpuscular Volume 85.2 fL (80.0-100.0); Monocytes # (auto) 0.7 10 ^3/uL (0-1.3); Monocytes % (auto) 9.3 % (0.0-12.0); Neutrophils # (auto) 5.5 10 ^3/uL (1.6-8.6); Neutrophils % (auto) 72.8 % (37.0-80.0); Nucleated Red Blood Cells % 0.1 %; Red Blood Cells 4.65 10^6/uL (4.5-5.90); Red Cell Distribution Width 14.2 % (11.8-14.3); White Blood Cell 7.5 10^3/uL (4.4-10.8)
[2022-10-21 05:55] LABS: BUN/Creatinine Ratio 13.8 (10.0-20.0); Calcium 8.3 mg/dL (8.5-10.1); Potassium 3.9 mmol/L (3.5-5.1)
[2022-10-21] MEDS: LEVOTHYROXINE SODIUM 50 MCG TAB PO SCH (06:16)
[2022-10-21] MEDS: IPRATROPIUM BROM 0.5 MG/2.5ML INH SOL NEB SCH ×3 (06:40→18:02)
[2022-10-21] MEDS: ALBUTEROL SULF 2.5 MG/0.5ML(0.5%) NEB SOLN NEB SCH ×3 (06:40→18:02)
[2022-10-21] MEDS: PANTOPRAZOLE 40 MG/10 ML VIAL INJ IV SCH (10:23)
[2022-10-21] MEDS: methylPREDNISolone SOD SUCC 40 MG/ML VL IV SCH (10:23)
[2022-10-21] MEDS: FUROSEMIDE 20 MG/2 ML VIAL IV SCH (10:23)
[2022-10-21] MEDS: ENOXAPARIN SOD 40 MG/0.4 ML SYRINGE SC SCH (10:24)
[2022-10-21] MEDS: ASPirin 81 mg TAB PO SCH (10:24)
[2022-10-21] MEDS: ATORVASTATIN 20 MG TAB PO SCH (22:11)
[2022-10-21] MEDS: HYDROcodone-ACET 5/325MG TAB PO PRN (22:11)
[2022-10-22] VITALS (7 sets, daily range): BP systolic 100–111; BP diastolic 47–65
[2022-10-22] MEDS: MEROPENEM 1GM IVPB 100 ML IV SCH ×3 (00:05→16:39)
[2022-10-22 05:45] LABS: Basophils # (auto) 0.1 10 ^3/uL (0-0.2); Basophils % (auto) 0.8 % (0.0-2.0); Eosinophils # (auto) 0.1 10 ^3/uL (0-0.8); Eosinophils % (auto) 1.9 % (0.0-7.0); Hematocrit 39.5 % (41.0-53.0); Hemoglobin 13.3 g/dL (13.5-17.5); Lymphocytes # (auto) 1.4 10 ^3/uL (0.4-5.4); Lymphocytes % (auto) 19.4 % (10.0-50.0); Mean Corpuscular Hemoglobin 28.8 pg (28.0-32.0); Mean Corpuscular Hgb Conc. 33.6 g/dL (32.0-36.0); Mean Corpuscular Volume 85.8 fL (80.0-100.0); Monocytes # (auto) 0.6 10 ^3/uL (0-1.3); Monocytes % (auto) 8.1 % (0.0-12.0); Neutrophils # (auto) 5.1 10 ^3/uL (1.6-8.6); Neutrophils % (auto) 69.8 % (37.0-80.0); Red Blood Cells 4.61 10^6/uL (4.5-5.90); Red Cell Distribution Width 14.4 % (11.8-14.3); White Blood Cell 7.2 10^3/uL (4.4-10.8)
[2022-10-22] MEDS: LEVOTHYROXINE SODIUM 50 MCG TAB PO SCH (06:02)
[2022-10-22 06:08] LABS: BUN/Creatinine Ratio 18.5 (10.0-20.0); Calcium 8.3 mg/dL (8.5-10.1); Potassium 3.6 mmol/L (3.5-5.1)
[2022-10-22] MEDS: IPRATROPIUM BROM 0.5 MG/2.5ML INH SOL NEB SCH ×4 (06:41→22:23)
[2022-10-22] MEDS: ALBUTEROL SULF 2.5 MG/0.5ML(0.5%) NEB SOLN NEB SCH ×4 (06:41→22:23)
[2022-10-22] MEDS: methylPREDNISolone SOD SUCC 40 MG/ML VL IV SCH (09:56)
[2022-10-22] MEDS: PANTOPRAZOLE 40 MG/10 ML VIAL INJ IV SCH (09:56)
[2022-10-22] MEDS: FUROSEMIDE 20 MG/2 ML VIAL IV SCH (09:56)
[2022-10-22] MEDS: ASPirin 81 mg TAB PO SCH (09:57)
[2022-10-22] MEDS: ENOXAPARIN SOD 40 MG/0.4 ML SYRINGE SC SCH (09:57)
[2022-10-22] MEDS ORDERED: ACETYLCYSTEINE 10 %(100MG/ML) SOL 4ML NEB ONE (10:15)
[2022-10-22] MEDS ORDERED: IPRATROPIUM BROM 0.5 MG/2.5ML INH SOL NEB PRN (10:45)
[2022-10-22] MEDS ORDERED: ALBUTEROL SULF 2.5 MG/0.5ML(0.5%) NEB SOLN NEB PRN (10:45)
[2022-10-22] MEDS: ACETYLCYSTEINE 10 %(100MG/ML) SOL 4ML NEB SCH ×3 (14:22→22:23)
[2022-10-22] MEDS: Glucerna Carbsteady SHAKE Vanilla 8oz PO SCH (18:52)
[2022-10-22] MEDS: ATORVASTATIN 20 MG TAB PO SCH (21:53)
[2022-10-22] MEDS: HYDROcodone-ACET 5/325MG TAB PO PRN (21:58)
[2022-10-23] MEDS: MEROPENEM 1GM IVPB 100 ML IV SCH ×3 (01:07→17:00)
[2022-10-23] MEDS: IPRATROPIUM BROM 0.5 MG/2.5ML INH SOL NEB SCH ×6 (02:18→21:58)
[2022-10-23] MEDS: ALBUTEROL SULF 2.5 MG/0.5ML(0.5%) NEB SOLN NEB SCH ×6 (02:18→21:58)
[2022-10-23] MEDS: ACETYLCYSTEINE 10 %(100MG/ML) SOL 4ML NEB SCH ×6 (02:18→21:58)
[2022-10-23 04:45] VITALS: BP 128/53
[2022-10-23] MEDS: HYDROcodone-ACET 5/325MG TAB PO PRN ×3 (05:27→22:50)
[2022-10-23 06:05] LABS: Basophils # (auto) 0.1 10 ^3/uL (0-0.2); Eosinophils # (auto) 0.2 10 ^3/uL (0-0.8); Eosinophils % (auto) 2.9 % (0.0-7.0); Hematocrit 39.2 % (41.0-53.0); Hemoglobin 13.2 g/dL (13.5-17.5); Lymphocytes # (auto) 1.6 10 ^3/uL (0.4-5.4); Lymphocytes % (auto) 20.5 % (10.0-50.0); Mean Corpuscular Hemoglobin 29.5 pg (28.0-32.0); Mean Corpuscular Hgb Conc. 33.8 g/dL (32.0-36.0); Mean Corpuscular Volume 87.3 fL (80.0-100.0); Monocytes # (auto) 0.8 10 ^3/uL (0-1.3); Monocytes % (auto) 9.5 % (0.0-12.0); Neutrophils # (auto) 5.3 10 ^3/uL (1.6-8.6); Neutrophils % (auto) 66.1 % (37.0-80.0); Nucleated Red Blood Cells % 0.1 %; Red Blood Cells 4.49 10^6/uL (4.5-5.90); Red Cell Distribution Width 14.3 % (11.8-14.3)
[2022-10-23] MEDS: LEVOTHYROXINE SODIUM 50 MCG TAB PO SCH (06:22)
[2022-10-23 06:33] LABS: BUN/Creatinine Ratio 24.5 (10.0-20.0); Calcium 8.6 mg/dL (8.5-10.1); Potassium 3.8 mmol/L (3.5-5.1)
[2022-10-23] MEDS: Glucerna Carbsteady SHAKE Vanilla 8oz PO SCH ×2 (08:00→18:20)
[2022-10-23 08:33] VITALS: BP 101/56
[2022-10-23] MEDS: ASPirin 81 mg TAB PO SCH (10:42)
[2022-10-23] MEDS: ENOXAPARIN SOD 40 MG/0.4 ML SYRINGE SC SCH (10:43)
[2022-10-23] MEDS: methylPREDNISolone SOD SUCC 40 MG/ML VL IV SCH (10:43)
[2022-10-23] MEDS: PANTOPRAZOLE 40 MG/10 ML VIAL INJ IV SCH (10:43)
[2022-10-23] MEDS: FUROSEMIDE 20 MG/2 ML VIAL IV SCH (10:43)
[2022-10-23 12:41] VITALS: BP 106/56
[2022-10-23 16:36] VITALS: BP 100/50
[2022-10-23 20:00] VITALS: BP 120/69
[2022-10-23 21:42] VITALS: BP 120/69
[2022-10-23] MEDS: ATORVASTATIN 20 MG TAB PO SCH (22:50)
[2022-10-24] VITALS (7 sets, daily range): BP systolic 110–115; BP diastolic 62–71
[2022-10-24] MEDS: ALBUTEROL SULF 2.5 MG/0.5ML(0.5%) NEB SOLN NEB SCH ×6 (02:07→21:58)
[2022-10-24] MEDS: IPRATROPIUM BROM 0.5 MG/2.5ML INH SOL NEB SCH ×6 (02:07→21:58)
[2022-10-24] MEDS: ACETYLCYSTEINE 10 %(100MG/ML) SOL 4ML NEB SCH ×6 (02:09→21:58)
[2022-10-24] MEDS: MEROPENEM 1GM IVPB 100 ML IV SCH ×3 (02:36→16:42)
[2022-10-24] MEDS: LEVOTHYROXINE SODIUM 50 MCG TAB PO SCH (06:26)
[2022-10-24] MEDS: Glucerna Carbsteady SHAKE Vanilla 8oz PO SCH ×2 (08:28→19:46)
[2022-10-24] MEDS: PANTOPRAZOLE 40 MG/10 ML VIAL INJ IV SCH (09:45)
[2022-10-24] MEDS: ASPirin 81 mg TAB PO SCH (09:45)
[2022-10-24] MEDS: ENOXAPARIN SOD 40 MG/0.4 ML SYRINGE SC SCH (09:45)
[2022-10-24] MEDS: methylPREDNISolone SOD SUCC 40 MG/ML VL IV SCH (09:45)
[2022-10-24] MEDS: FUROSEMIDE 20 MG/2 ML VIAL IV SCH (09:46)
[2022-10-24] MEDS: ATORVASTATIN 20 MG TAB PO SCH (21:43)
[2022-10-25] MEDS: IPRATROPIUM BROM 0.5 MG/2.5ML INH SOL NEB SCH ×6 (02:20→23:08)
[2022-10-25] MEDS: ALBUTEROL SULF 2.5 MG/0.5ML(0.5%) NEB SOLN NEB SCH ×6 (02:20→23:08)
[2022-10-25] MEDS: ACETYLCYSTEINE 10 %(100MG/ML) SOL 4ML NEB SCH ×6 (02:21→23:08)
[2022-10-25 05:00] VITALS: BP 110/59
[2022-10-25] MEDS: LEVOTHYROXINE SODIUM 50 MCG TAB PO SCH (06:28)
[2022-10-25] MEDS: MEROPENEM 1GM IVPB 100 ML IV SCH ×3 (08:44→16:48)
[2022-10-25] MEDS: Glucerna Carbsteady SHAKE Vanilla 8oz PO SCH ×2 (08:44→18:19)
[2022-10-25 09:07] VITALS: BP 108/64
[2022-10-25] MEDS: ENOXAPARIN SOD 40 MG/0.4 ML SYRINGE SC SCH (09:15)
[2022-10-25] MEDS: PANTOPRAZOLE 40 MG/10 ML VIAL INJ IV SCH (09:15)
[2022-10-25] MEDS: FUROSEMIDE 20 MG/2 ML VIAL IV SCH (09:16)
[2022-10-25] MEDS: ASPirin 81 mg TAB PO SCH (09:20)
[2022-10-25 13:00] VITALS: BP 105/62
[2022-10-25 17:00] VITALS: BP 102/56
[2022-10-25] MEDS: ATORVASTATIN 20 MG TAB PO SCH (21:29)
[2022-10-25] MEDS: HYDROcodone-ACET 5/325MG TAB PO PRN (21:33)
[2022-10-25 22:00] VITALS: BP 118/76
[2022-10-26] MEDS: MEROPENEM 1GM IVPB 100 ML IV SCH ×4 (01:01→23:46)
[2022-10-26] MEDS: IPRATROPIUM BROM 0.5 MG/2.5ML INH SOL NEB SCH ×6 (02:06→22:15)
[2022-10-26] MEDS: ALBUTEROL SULF 2.5 MG/0.5ML(0.5%) NEB SOLN NEB SCH ×6 (02:06→22:15)
[2022-10-26] MEDS: ACETYLCYSTEINE 10 %(100MG/ML) SOL 4ML NEB SCH ×6 (02:06→22:15)
[2022-10-26 05:00] VITALS: BP 101/52
[2022-10-26] MEDS: LEVOTHYROXINE SODIUM 50 MCG TAB PO SCH (06:34)
[2022-10-26] MEDS: Glucerna Carbsteady SHAKE Vanilla 8oz PO SCH ×2 (08:49→17:44)
[2022-10-26 09:00] VITALS: BP 104/68
[2022-10-26] MEDS: ENOXAPARIN SOD 40 MG/0.4 ML SYRINGE SC SCH (11:21)
[2022-10-26] MEDS: ASPirin 81 mg TAB PO SCH (11:21)
[2022-10-26] MEDS: PANTOPRAZOLE 40 MG/10 ML VIAL INJ IV SCH (11:21)
[2022-10-26] MEDS: FUROSEMIDE 20 MG/2 ML VIAL IV SCH (11:27)
[2022-10-26 13:00] VITALS: BP 115/65
[2022-10-26 16:42] VITALS: BP 109/56
[2022-10-26] MEDS: guaiFENesin-CODEINE Liq 5 ML UD PO PRN (21:43)
[2022-10-26] MEDS: ATORVASTATIN 20 MG TAB PO SCH (21:43)
[2022-10-26 22:00] VITALS: BP 117/67
[2022-10-27] VITALS (7 sets, daily range): BP systolic 101–106; BP diastolic 58–64
[2022-10-27] MEDS: ALBUTEROL SULF 2.5 MG/0.5ML(0.5%) NEB SOLN NEB SCH ×6 (02:33→22:20)
[2022-10-27] MEDS: ACETYLCYSTEINE 10 %(100MG/ML) SOL 4ML NEB SCH ×6 (02:34→22:20)
[2022-10-27] MEDS: IPRATROPIUM BROM 0.5 MG/2.5ML INH SOL NEB SCH ×6 (02:34→22:20)
[2022-10-27] MEDS: LEVOTHYROXINE SODIUM 50 MCG TAB PO SCH (06:23)
[2022-10-27] MEDS: Glucerna Carbsteady SHAKE Vanilla 8oz PO SCH ×2 (08:32→18:00)
[2022-10-27] MEDS: MEROPENEM 1GM IVPB 100 ML IV SCH ×2 (08:32→16:51)
[2022-10-27] MEDS: ASPirin 81 mg TAB PO SCH (09:48)
[2022-10-27] MEDS: FUROSEMIDE 20 MG/2 ML VIAL IV SCH (09:50)
[2022-10-27] MEDS: PANTOPRAZOLE 40 MG/10 ML VIAL INJ IV SCH (09:50)
[2022-10-27] MEDS: ENOXAPARIN SOD 40 MG/0.4 ML SYRINGE SC SCH (09:50)
[2022-10-27] MEDS: ATORVASTATIN 20 MG TAB PO SCH (21:12)
[2022-10-28] MEDS: MEROPENEM 1GM IVPB 100 ML IV SCH ×2 (00:06→08:05)
[2022-10-28] MEDS: ACETAMINOPHEN 325 MG TAB PO PRN ×3 (00:09→21:18)
[2022-10-28] MEDS: guaiFENesin-CODEINE Liq 5 ML UD PO PRN ×3 (00:09→21:17)
[2022-10-28] MEDS: IPRATROPIUM BROM 0.5 MG/2.5ML INH SOL NEB SCH ×6 (01:55→22:18)
[2022-10-28] MEDS: ALBUTEROL SULF 2.5 MG/0.5ML(0.5%) NEB SOLN NEB SCH ×6 (01:55→22:18)
[2022-10-28] MEDS: ACETYLCYSTEINE 10 %(100MG/ML) SOL 4ML NEB SCH ×6 (01:55→22:18)
[2022-10-28 05:00] VITALS: BP 103/65
[2022-10-28] MEDS: LEVOTHYROXINE SODIUM 50 MCG TAB PO SCH (06:15)
[2022-10-28 08:55] VITALS: BP 119/65
[2022-10-28] MEDS: ENOXAPARIN SOD 40 MG/0.4 ML SYRINGE SC SCH (09:10)
[2022-10-28] MEDS: PANTOPRAZOLE 40 MG/10 ML VIAL INJ IV SCH (09:10)
[2022-10-28] MEDS: ASPirin 81 mg TAB PO SCH (09:10)
[2022-10-28] MEDS: FUROSEMIDE 20 MG/2 ML VIAL IV SCH (09:11)
[2022-10-28 13:00] VITALS: BP 120/73
[2022-10-28 17:00] VITALS: BP 99/66
[2022-10-28] MEDS: Glucerna Carbsteady SHAKE Vanilla 8oz PO SCH ×2 (17:09→17:10)
[2022-10-28 20:00] VITALS: BP 101/66
[2022-10-28] MEDS: ATORVASTATIN 20 MG TAB PO SCH (21:18)
[2022-10-28 22:16] VITALS: BP 101/66
[2022-10-29] VITALS (7 sets, daily range): BP systolic 98–109; BP diastolic 59–68
[2022-10-29] MEDS: ACETYLCYSTEINE 10 %(100MG/ML) SOL 4ML NEB SCH ×6 (01:42→22:15)
[2022-10-29] MEDS: ALBUTEROL SULF 2.5 MG/0.5ML(0.5%) NEB SOLN NEB SCH ×6 (01:42→22:15)
[2022-10-29] MEDS: IPRATROPIUM BROM 0.5 MG/2.5ML INH SOL NEB SCH ×6 (01:42→22:15)
[2022-10-29] MEDS: LEVOTHYROXINE SODIUM 50 MCG TAB PO SCH (06:39)
[2022-10-29] MEDS: guaiFENesin-CODEINE Liq 5 ML UD PO PRN ×2 (06:39→20:48)
[2022-10-29] MEDS: Glucerna Carbsteady SHAKE Vanilla 8oz PO SCH ×2 (08:00→17:30)
[2022-10-29] MEDS: FUROSEMIDE 20 MG TAB PO SCH (10:19)
[2022-10-29] MEDS: PANTOPRAZOLE 40 MG TAB PO SCH (10:20)
[2022-10-29] MEDS: ASPirin 81 mg TAB PO SCH (10:20)
[2022-10-29] MEDS: ENOXAPARIN SOD 40 MG/0.4 ML SYRINGE SC SCH (10:21)
[2022-10-29] MEDS: ATORVASTATIN 20 MG TAB PO SCH (20:48)
[2022-10-29] MEDS: ACETAMINOPHEN 325 MG TAB PO PRN (20:48)
[2022-10-30] VITALS (8 sets, daily range): BP systolic 96–104; BP diastolic 58–67
[2022-10-30] MEDS: ALBUTEROL SULF 2.5 MG/0.5ML(0.5%) NEB SOLN NEB SCH ×6 (02:04→22:19)
[2022-10-30] MEDS: IPRATROPIUM BROM 0.5 MG/2.5ML INH SOL NEB SCH ×6 (02:04→22:19)
[2022-10-30] MEDS: ACETYLCYSTEINE 10 %(100MG/ML) SOL 4ML NEB SCH ×6 (02:04→22:19)
[2022-10-30] MEDS: guaiFENesin-CODEINE Liq 5 ML UD PO PRN (06:06)
[2022-10-30] MEDS: LEVOTHYROXINE SODIUM 50 MCG TAB PO SCH (06:09)
[2022-10-30] MEDS: Glucerna Carbsteady SHAKE Vanilla 8oz PO SCH ×2 (08:00→18:00)
[2022-10-30] MEDS: ENOXAPARIN SOD 40 MG/0.4 ML SYRINGE SC SCH (10:37)
[2022-10-30] MEDS: ASPirin 81 mg TAB PO SCH (10:41)
[2022-10-30] MEDS: FUROSEMIDE 20 MG TAB PO SCH (10:41)
[2022-10-30] MEDS: PANTOPRAZOLE 40 MG TAB PO SCH (10:41)
[2022-10-30] MEDS: ATORVASTATIN 20 MG TAB PO SCH (22:16)
[2022-10-31] VITALS (7 sets, daily range): BP systolic 96–112; BP diastolic 54–79
[2022-10-31] MEDS: guaiFENesin-CODEINE Liq 5 ML UD PO PRN ×4 (00:01→21:14)
[2022-10-31] MEDS: IPRATROPIUM BROM 0.5 MG/2.5ML INH SOL NEB SCH ×6 (02:07→22:01)
[2022-10-31] MEDS: ACETYLCYSTEINE 10 %(100MG/ML) SOL 4ML NEB SCH ×6 (02:07→22:02)
[2022-10-31] MEDS: ALBUTEROL SULF 2.5 MG/0.5ML(0.5%) NEB SOLN NEB SCH ×6 (02:07→22:01)
[2022-10-31] MEDS: ACETAMINOPHEN 325 MG TAB PO PRN ×3 (02:14→16:53)
[2022-10-31] MEDS: LEVOTHYROXINE SODIUM 50 MCG TAB PO SCH (06:16)
[2022-10-31 06:39] LABS: Basophils # (auto) 0.1 10 ^3/uL (0-0.2); Basophils % (auto) 1.1 % (0.0-2.0); Eosinophils # (auto) 0.6 10 ^3/uL (0-0.8); Eosinophils % (auto) 10.3 % (0.0-7.0); Hematocrit 39.4 % (41.0-53.0); Hemoglobin 13.3 g/dL (13.5-17.5); Lymphocytes % (auto) 18.9 % (10.0-50.0); Mean Corpuscular Hgb Conc. 33.8 g/dL (32.0-36.0); Mean Corpuscular Volume 85.8 fL (80.0-100.0); Monocytes # (auto) 0.5 10 ^3/uL (0-1.3); Monocytes % (auto) 9.7 % (0.0-12.0); Neutrophils # (auto) 3.3 10 ^3/uL (1.6-8.6); Nucleated Red Blood Cells % 0.1 %; Red Blood Cells 4.59 10^6/uL (4.5-5.90); Red Cell Distribution Width 14.7 % (11.8-14.3); White Blood Cell 5.5 10^3/uL (4.4-10.8)
[2022-10-31 06:57] LABS: BUN/Creatinine Ratio 17.1 (10.0-20.0); Calcium 8.4 mg/dL (8.5-10.1); Potassium 4.2 mmol/L (3.5-5.1)
[2022-10-31] MEDS: ENOXAPARIN SOD 40 MG/0.4 ML SYRINGE SC SCH (09:37)
[2022-10-31] MEDS: PANTOPRAZOLE 40 MG TAB PO SCH (09:38)
[2022-10-31] MEDS: FUROSEMIDE 20 MG TAB PO SCH (09:38)
[2022-10-31] MEDS: ASPirin 81 mg TAB PO SCH (09:38)
[2022-10-31] MEDS: FUROSEMIDE 40 MG/4 ML VIAL IV SCH (16:52)
[2022-10-31] MEDS: Glucerna Carbsteady SHAKE Vanilla 8oz PO SCH ×2 (16:52→19:13)
[2022-10-31] MEDS: ATORVASTATIN 20 MG TAB PO SCH (21:03)
[2022-11-01] MEDS: IPRATROPIUM BROM 0.5 MG/2.5ML INH SOL NEB SCH ×6 (02:40→22:30)
[2022-11-01] MEDS: ALBUTEROL SULF 2.5 MG/0.5ML(0.5%) NEB SOLN NEB SCH ×6 (02:40→22:30)
[2022-11-01] MEDS: ACETYLCYSTEINE 10 %(100MG/ML) SOL 4ML NEB SCH ×6 (02:41→22:29)
[2022-11-01] MEDS: ACETAMINOPHEN 325 MG TAB PO PRN ×2 (03:08→09:22)
[2022-11-01 04:37] VITALS: BP 115/63
[2022-11-01] MEDS: LEVOTHYROXINE SODIUM 50 MCG TAB PO SCH (07:12)
[2022-11-01] MEDS: Glucerna Carbsteady SHAKE Vanilla 8oz PO SCH ×2 (08:00→17:36)
[2022-11-01 09:00] VITALS: BP 125/62
[2022-11-01] MEDS: PANTOPRAZOLE 40 MG TAB PO SCH (09:23)
[2022-11-01] MEDS: ENOXAPARIN SOD 40 MG/0.4 ML SYRINGE SC SCH (09:23)
[2022-11-01] MEDS: ASPirin 81 mg TAB PO SCH (09:23)
[2022-11-01] MEDS: FUROSEMIDE 40 MG/4 ML VIAL IV SCH (09:26)
[2022-11-01] MEDS: guaiFENesin-CODEINE Liq 5 ML UD PO PRN (11:07)
[2022-11-01] MEDS: DOXYCYCLINE 100MG/250ML 250 ML IV SCH ×2 (11:25→22:34)
[2022-11-01] MEDS: HYDROcodone-ACET 5/325MG TAB PO PRN ×2 (11:25→22:43)
[2022-11-01 13:00] VITALS: BP 105/65
[2022-11-01 17:00] VITALS: BP 120/75
[2022-11-01 20:00] VITALS: BP 114/74
[2022-11-01 21:42] VITALS: BP 114/74
[2022-11-01] MEDS: ATORVASTATIN 20 MG TAB PO SCH (22:34)
[2022-11-02] MEDS: IPRATROPIUM BROM 0.5 MG/2.5ML INH SOL NEB SCH ×6 (02:19→21:44)
[2022-11-02] MEDS: ALBUTEROL SULF 2.5 MG/0.5ML(0.5%) NEB SOLN NEB SCH ×6 (02:19→21:44)
[2022-11-02] MEDS: ACETYLCYSTEINE 10 %(100MG/ML) SOL 4ML NEB SCH ×6 (02:20→21:44)
[2022-11-02 05:00] VITALS: BP 120/70
[2022-11-02] MEDS: LEVOTHYROXINE SODIUM 50 MCG TAB PO SCH (06:08)
[2022-11-02] MEDS: guaiFENesin-CODEINE Liq 5 ML UD PO PRN (06:27)
[2022-11-02] MEDS: Glucerna Carbsteady SHAKE Vanilla 8oz PO SCH ×2 (08:12→19:00)
[2022-11-02 08:31] VITALS: BP 113/69
[2022-11-02] MEDS: PANTOPRAZOLE 40 MG TAB PO SCH (08:52)
[2022-11-02] MEDS: HYDROcodone-ACET 5/325MG TAB PO PRN ×2 (08:52→20:35)
[2022-11-02] MEDS: ASPirin 81 mg TAB PO SCH (08:52)
[2022-11-02] MEDS: FUROSEMIDE 40 MG/4 ML VIAL IV SCH (08:52)
[2022-11-02] MEDS: ENOXAPARIN SOD 40 MG/0.4 ML SYRINGE SC SCH (08:53)
[2022-11-02] MEDS: DOXYCYCLINE 100MG/250ML 250 ML IV SCH ×2 (08:53→22:14)
[2022-11-02 12:20] VITALS: BP 120/66
[2022-11-02 16:21] VITALS: BP 106/71
[2022-11-02 20:00] VITALS: BP 106/70
[2022-11-02 22:00] VITALS: BP 106/70
[2022-11-02] MEDS: ATORVASTATIN 20 MG TAB PO SCH (22:14)
[2022-11-03] VITALS (8 sets, daily range): BP systolic 93–117; BP diastolic 57–76
[2022-11-03] MEDS: IPRATROPIUM BROM 0.5 MG/2.5ML INH SOL NEB SCH ×6 (01:58→22:04)
[2022-11-03] MEDS: ACETYLCYSTEINE 10 %(100MG/ML) SOL 4ML NEB SCH ×6 (01:58→22:05)
[2022-11-03] MEDS: ALBUTEROL SULF 2.5 MG/0.5ML(0.5%) NEB SOLN NEB SCH ×6 (01:58→22:04)
[2022-11-03] MEDS: HYDROcodone-ACET 5/325MG TAB PO PRN ×2 (02:42→22:03)
[2022-11-03] MEDS: LEVOTHYROXINE SODIUM 50 MCG TAB PO SCH (06:45)
[2022-11-03] MEDS: DOXYCYCLINE 100MG/250ML 250 ML IV SCH ×2 (08:59→22:01)
[2022-11-03] MEDS: Glucerna Carbsteady SHAKE Vanilla 8oz PO SCH ×2 (08:59→18:24)
[2022-11-03] MEDS: ASPirin 81 mg TAB PO SCH (09:00)
[2022-11-03] MEDS: FUROSEMIDE 40 MG/4 ML VIAL IV SCH (09:00)
[2022-11-03] MEDS: PANTOPRAZOLE 40 MG TAB PO SCH (09:00)
[2022-11-03] MEDS: ENOXAPARIN SOD 40 MG/0.4 ML SYRINGE SC SCH (09:00)
[2022-11-03] MEDS: ATORVASTATIN 20 MG TAB PO SCH (22:01)
[2022-11-04] MEDS: ACETYLCYSTEINE 10 %(100MG/ML) SOL 4ML NEB SCH ×6 (02:00→22:14)
[2022-11-04] MEDS: IPRATROPIUM BROM 0.5 MG/2.5ML INH SOL NEB SCH ×6 (02:00→22:14)
[2022-11-04] MEDS: ALBUTEROL SULF 2.5 MG/0.5ML(0.5%) NEB SOLN NEB SCH ×6 (02:00→22:14)
[2022-11-04] MEDS: HYDROcodone-ACET 5/325MG TAB PO PRN ×2 (04:19→22:04)
[2022-11-04 05:00] VITALS: BP 111/67
[2022-11-04] MEDS: LEVOTHYROXINE SODIUM 50 MCG TAB PO SCH (06:26)
[2022-11-04 08:54] VITALS: BP 99/63
[2022-11-04] MEDS: ASPirin 81 mg TAB PO SCH (08:54)
[2022-11-04] MEDS: DOXYCYCLINE 100MG/250ML 250 ML IV SCH ×2 (08:54→21:53)
[2022-11-04] MEDS: PANTOPRAZOLE 40 MG TAB PO SCH (08:54)
[2022-11-04] MEDS: ENOXAPARIN SOD 40 MG/0.4 ML SYRINGE SC SCH (08:54)
[2022-11-04] MEDS: FUROSEMIDE 40 MG/4 ML VIAL IV SCH (08:54)
[2022-11-04] MEDS: Glucerna Carbsteady SHAKE Vanilla 8oz PO SCH ×2 (09:04→18:30)
[2022-11-04 13:00] VITALS: BP 102/60
[2022-11-04 16:37] VITALS: BP 100/60
[2022-11-04] MEDS: ATORVASTATIN 20 MG TAB PO SCH (21:53)
[2022-11-04 22:00] VITALS: BP 102/65
[2022-11-05] MEDS: IPRATROPIUM BROM 0.5 MG/2.5ML INH SOL NEB SCH ×6 (02:26→22:06)
[2022-11-05] MEDS: ACETYLCYSTEINE 10 %(100MG/ML) SOL 4ML NEB SCH ×6 (02:26→22:07)
[2022-11-05] MEDS: ALBUTEROL SULF 2.5 MG/0.5ML(0.5%) NEB SOLN NEB SCH ×6 (02:26→22:06)
[2022-11-05 05:00] VITALS: BP 97/62
[2022-11-05] MEDS: LEVOTHYROXINE SODIUM 50 MCG TAB PO SCH (06:48)
[2022-11-05 08:38] VITALS: BP 100/56
[2022-11-05] MEDS: Glucerna Carbsteady SHAKE Vanilla 8oz PO SCH ×2 (09:30→18:10)
[2022-11-05] MEDS: ASPirin 81 mg TAB PO SCH (09:31)
[2022-11-05] MEDS: PANTOPRAZOLE 40 MG TAB PO SCH (09:31)
[2022-11-05] MEDS: FUROSEMIDE 40 MG/4 ML VIAL IV SCH (09:31)
[2022-11-05] MEDS: ENOXAPARIN SOD 40 MG/0.4 ML SYRINGE SC SCH (09:32)
[2022-11-05] MEDS: DOXYCYCLINE 100MG/250ML 250 ML IV SCH ×2 (09:32→21:36)
[2022-11-05] MEDS: guaiFENesin-CODEINE Liq 5 ML UD PO PRN (10:27)
[2022-11-05 12:41] VITALS: BP 102/63
[2022-11-05] MEDS ORDERED: POLYETHYLENE GLYCOL 17 GM PWDR PO PRN (13:00)
[2022-11-05 16:43] VITALS: BP 100/61
[2022-11-05] MEDS: DOCUSATE SOD 100 MG CAP PO SCH (21:37)
[2022-11-05] MEDS: ATORVASTATIN 20 MG TAB PO SCH (21:37)
[2022-11-05] MEDS: HYDROcodone-ACET 5/325MG TAB PO PRN (21:38)
[2022-11-05 22:00] VITALS: BP 108/66
[2022-11-06] VITALS (7 sets, daily range): BP systolic 98–112; BP diastolic 62–69
[2022-11-06] MEDS: ALBUTEROL SULF 2.5 MG/0.5ML(0.5%) NEB SOLN NEB SCH ×6 (02:15→22:36)
[2022-11-06] MEDS: IPRATROPIUM BROM 0.5 MG/2.5ML INH SOL NEB SCH ×6 (02:15→22:36)
[2022-11-06] MEDS: ACETYLCYSTEINE 10 %(100MG/ML) SOL 4ML NEB SCH ×6 (02:16→22:36)
[2022-11-06] MEDS: LEVOTHYROXINE SODIUM 50 MCG TAB PO SCH (06:31)
[2022-11-06] MEDS: Glucerna Carbsteady SHAKE Vanilla 8oz PO SCH ×2 (08:17→19:12)
[2022-11-06] MEDS: PANTOPRAZOLE 40 MG TAB PO SCH (09:12)
[2022-11-06] MEDS: DOCUSATE SOD 100 MG CAP PO SCH ×2 (09:12→22:25)
[2022-11-06] MEDS: FUROSEMIDE 40 MG/4 ML VIAL IV SCH (09:13)
[2022-11-06] MEDS: ASPirin 81 mg TAB PO SCH (09:13)
[2022-11-06] MEDS: ENOXAPARIN SOD 40 MG/0.4 ML SYRINGE SC SCH (09:13)
[2022-11-06] MEDS: DOXYCYCLINE 100MG/250ML 250 ML IV SCH ×2 (09:14→22:26)
[2022-11-06] MEDS: ATORVASTATIN 20 MG TAB PO SCH (22:25)
[2022-11-06] MEDS: HYDROcodone-ACET 5/325MG TAB PO PRN (22:46)
[2022-11-07] MEDS: ALBUTEROL SULF 2.5 MG/0.5ML(0.5%) NEB SOLN NEB SCH ×6 (02:16→22:17)
[2022-11-07] MEDS: IPRATROPIUM BROM 0.5 MG/2.5ML INH SOL NEB SCH ×6 (02:16→22:17)
[2022-11-07] MEDS: ACETYLCYSTEINE 10 %(100MG/ML) SOL 4ML NEB SCH ×6 (02:18→22:17)
[2022-11-07 05:00] VITALS: BP 110/62
[2022-11-07] MEDS: LEVOTHYROXINE SODIUM 50 MCG TAB PO SCH (06:20)
[2022-11-07] MEDS: DOXYCYCLINE 100MG/250ML 250 ML IV SCH ×2 (07:55→22:02)
[2022-11-07] MEDS: HYDROcodone-ACET 5/325MG TAB PO PRN ×2 (07:57→22:08)
[2022-11-07] MEDS: Glucerna Carbsteady SHAKE Vanilla 8oz PO SCH ×2 (08:08→18:35)
[2022-11-07 08:37] VITALS: BP 119/74
[2022-11-07] MEDS: ENOXAPARIN SOD 40 MG/0.4 ML SYRINGE SC SCH (10:36)
[2022-11-07] MEDS: PANTOPRAZOLE 40 MG TAB PO SCH (10:37)
[2022-11-07] MEDS: ASPirin 81 mg TAB PO SCH (10:37)
[2022-11-07] MEDS: DOCUSATE SOD 100 MG CAP PO SCH ×2 (10:37→22:02)
[2022-11-07] MEDS: FUROSEMIDE 40 MG/4 ML VIAL IV SCH (10:37)
[2022-11-07 13:00] VITALS: BP 112/69
[2022-11-07 17:00] VITALS: BP 104/67
[2022-11-07 22:00] VITALS: BP 104/71
[2022-11-07] MEDS: ATORVASTATIN 20 MG TAB PO SCH (22:02)
[2022-11-08] MEDS: IPRATROPIUM BROM 0.5 MG/2.5ML INH SOL NEB SCH ×6 (02:12→23:18)
[2022-11-08] MEDS: ALBUTEROL SULF 2.5 MG/0.5ML(0.5%) NEB SOLN NEB SCH ×6 (02:12→23:18)
[2022-11-08] MEDS: ACETYLCYSTEINE 10 %(100MG/ML) SOL 4ML NEB SCH ×6 (02:12→23:18)
[2022-11-08] MEDS: guaiFENesin-CODEINE Liq 5 ML UD PO PRN (04:55)
[2022-11-08 05:00] VITALS: BP 100/59
[2022-11-08] MEDS: LEVOTHYROXINE SODIUM 50 MCG TAB PO SCH (06:37)
[2022-11-08 08:00] VITALS: BP 101/62
[2022-11-08 09:00] VITALS: BP 101/62
[2022-11-08] MEDS: DOXYCYCLINE 100MG/250ML 250 ML IV SCH (10:00)
[2022-11-08] MEDS: DOCUSATE SOD 100 MG CAP PO SCH ×2 (11:06→22:14)
[2022-11-08] MEDS: ASPirin 81 mg TAB PO SCH (11:06)
[2022-11-08] MEDS: ENOXAPARIN SOD 40 MG/0.4 ML SYRINGE SC SCH (11:07)
[2022-11-08] MEDS: FUROSEMIDE 40 MG/4 ML VIAL IV SCH (11:07)
[2022-11-08] MEDS: PANTOPRAZOLE 40 MG TAB PO SCH (11:07)
[2022-11-08] MEDS: Glucerna Carbsteady SHAKE Vanilla 8oz PO SCH ×2 (11:14→19:32)
[2022-11-08] MEDS ORDERED: DOXYCYCLINE 100 MG TAB/CAP PO ONE (13:00)
[2022-11-08 13:05] VITALS: BP 102/63
[2022-11-08 17:10] VITALS: BP 94/57
[2022-11-08 22:00] VITALS: BP 102/60
[2022-11-08] MEDS: DOXYCYCLINE 100 MG TAB/CAP PO SCH (22:14)
[2022-11-08] MEDS: ATORVASTATIN 20 MG TAB PO SCH (22:17)
[2022-11-08] MEDS: HYDROcodone-ACET 5/325MG TAB PO PRN (22:24)
[2022-11-09] MEDS: ACETYLCYSTEINE 10 %(100MG/ML) SOL 4ML NEB SCH ×6 (03:01→22:01)
[2022-11-09] MEDS: IPRATROPIUM BROM 0.5 MG/2.5ML INH SOL NEB SCH ×6 (03:01→22:01)
[2022-11-09] MEDS: ALBUTEROL SULF 2.5 MG/0.5ML(0.5%) NEB SOLN NEB SCH ×6 (03:01→22:01)
[2022-11-09 03:07] VITALS: BP 102/60
[2022-11-09 05:00] VITALS: BP 98/61
[2022-11-09] MEDS: LEVOTHYROXINE SODIUM 50 MCG TAB PO SCH (06:16)
[2022-11-09] MEDS: Glucerna Carbsteady SHAKE Vanilla 8oz PO SCH ×2 (08:24→18:04)
[2022-11-09 08:35] VITALS: BP 106/70
[2022-11-09] MEDS: DOXYCYCLINE 100 MG TAB/CAP PO SCH ×2 (10:16→22:42)
[2022-11-09] MEDS: ASPirin 81 mg TAB PO SCH (10:16)
[2022-11-09] MEDS: PANTOPRAZOLE 40 MG TAB PO SCH (10:16)
[2022-11-09] MEDS: FUROSEMIDE 40 MG/4 ML VIAL IV SCH (10:16)
[2022-11-09] MEDS: DOCUSATE SOD 100 MG CAP PO SCH ×2 (10:16→22:42)
[2022-11-09] MEDS: ENOXAPARIN SOD 40 MG/0.4 ML SYRINGE SC SCH (10:17)
[2022-11-09 12:06] VITALS: BP 99/62
[2022-11-09 16:20] VITALS: BP 96/64
[2022-11-09 22:00] VITALS: BP 101/63
[2022-11-09] MEDS: ATORVASTATIN 20 MG TAB PO SCH (22:42)
[2022-11-10] MEDS: ALBUTEROL SULF 2.5 MG/0.5ML(0.5%) NEB SOLN NEB SCH ×6 (02:04→22:02)
[2022-11-10] MEDS: IPRATROPIUM BROM 0.5 MG/2.5ML INH SOL NEB SCH ×6 (02:04→22:02)
[2022-11-10] MEDS: ACETYLCYSTEINE 10 %(100MG/ML) SOL 4ML NEB SCH ×6 (02:04→22:02)
[2022-11-10] MEDS: HYDROcodone-ACET 5/325MG TAB PO PRN (03:22)
[2022-11-10 05:00] VITALS: BP 98/57
[2022-11-10] MEDS: LEVOTHYROXINE SODIUM 50 MCG TAB PO SCH (06:18)
[2022-11-10] MEDS: Glucerna Carbsteady SHAKE Vanilla 8oz PO SCH ×2 (08:00→18:00)
[2022-11-10 09:00] VITALS: BP 103/58
[2022-11-10] MEDS: FUROSEMIDE 40 MG/4 ML VIAL IV SCH (10:00)
[2022-11-10] MEDS: ENOXAPARIN SOD 40 MG/0.4 ML SYRINGE SC SCH (10:23)
[2022-11-10] MEDS: ASPirin 81 mg TAB PO SCH (10:23)
[2022-11-10] MEDS: DOXYCYCLINE 100 MG TAB/CAP PO SCH (10:23)
[2022-11-10] MEDS: PANTOPRAZOLE 40 MG TAB PO SCH (10:23)
[2022-11-10] MEDS: DOCUSATE SOD 100 MG CAP PO SCH (10:23)
[2022-11-10 10:55] LABS: Basophils # (auto) 0 10 ^3/uL (0-0.2); Basophils % (auto) 1.1 % (0.0-2.0); Eosinophils # (auto) 0.5 10 ^3/uL (0-0.8); Eosinophils % (auto) 11.6 % (0.0-7.0); Hematocrit 39.7 % (41.0-53.0); Hemoglobin 13.5 g/dL (13.5-17.5); Lymphocytes # (auto) 0.9 10 ^3/uL (0.4-5.4); Lymphocytes % (auto) 21.2 % (10.0-50.0); Mean Corpuscular Hemoglobin 28.9 pg (28.0-32.0); Mean Corpuscular Volume 84.9 fL (80.0-100.0); Monocytes # (auto) 0.5 10 ^3/uL (0-1.3); Monocytes % (auto) 10.5 % (0.0-12.0); Neutrophils # (auto) 2.4 10 ^3/uL (1.6-8.6); Neutrophils % (auto) 55.6 % (37.0-80.0); Nucleated Red Blood Cells % 0.2 %; Red Blood Cells 4.68 10^6/uL (4.5-5.90); Red Cell Distribution Width 15.7 % (11.8-14.3); White Blood Cell 4.3 10^3/uL (4.4-10.8)
[2022-11-10 11:22] LABS: Albumin 2.8 g/dL (3.4-5.0); Calcium 8.6 mg/dL (8.5-10.1); Potassium 3.1 mmol/L (3.5-5.1)
[2022-11-10 11:28] LABS: BUN/Creatinine Ratio 14.9 (10.0-20.0); Bilirubin, Total 0.3 mg/dL (0.2-1.0); Total Protein 7.2 g/dL (6.4-8.2)
[2022-11-10 13:00] VITALS: BP 101/60
[2022-11-10] MEDS: methylPREDNISolone SOD SUCC 125 MG/2 ML VL IV SCH (15:17)
[2022-11-10 16:40] VITALS: BP 99/58
[2022-11-10 22:00] VITALS: BP 119/71
[2022-11-11] MEDS: ATORVASTATIN 20 MG TAB PO SCH ×2 (00:39→21:52)
[2022-11-11] MEDS: FUROSEMIDE 40 MG/4 ML VIAL IV SCH ×3 (00:39→21:52)
[2022-11-11] MEDS: methylPREDNISolone SOD SUCC 125 MG/2 ML VL IV SCH ×4 (00:39→22:00)
[2022-11-11] MEDS: DOCUSATE SOD 100 MG CAP PO SCH ×3 (00:39→21:52)
[2022-11-11] MEDS: DOXYCYCLINE 100 MG TAB/CAP PO SCH ×3 (00:40→21:52)
[2022-11-11] MEDS: IPRATROPIUM BROM 0.5 MG/2.5ML INH SOL NEB SCH ×6 (02:20→22:15)
[2022-11-11] MEDS: ALBUTEROL SULF 2.5 MG/0.5ML(0.5%) NEB SOLN NEB SCH ×6 (02:20→22:15)
[2022-11-11] MEDS: ACETYLCYSTEINE 10 %(100MG/ML) SOL 4ML NEB SCH ×5 (02:21→22:15)
[2022-11-11] MEDS: ACETAMINOPHEN 325 MG TAB PO PRN ×2 (04:30→21:58)
[2022-11-11] MEDS: guaiFENesin-CODEINE Liq 5 ML UD PO PRN ×2 (04:30→21:53)
[2022-11-11 05:00] VITALS: BP 112/66
[2022-11-11] MEDS: LEVOTHYROXINE SODIUM 50 MCG TAB PO SCH (07:47)
[2022-11-11] MEDS: Glucerna Carbsteady SHAKE Vanilla 8oz PO SCH ×2 (08:00→18:00)
[2022-11-11 09:00] VITALS: BP 108/69
[2022-11-11] MEDS: ASPirin 81 mg TAB PO SCH (10:01)
[2022-11-11] MEDS: PANTOPRAZOLE 40 MG TAB PO SCH (10:05)
[2022-11-11 13:00] VITALS: BP 113/72
[2022-11-11 17:00] VITALS: BP 110/63
[2022-11-11 20:00] VITALS: BP 108/69
[2022-11-11 22:00] VITALS: BP 108/69
[2022-11-11] MEDS ORDERED: ALBUTEROL SULF 2.5 MG/0.5ML(0.5%) NEB SOLN ONE (22:05)
[2022-11-11] MEDS ORDERED: IPRATROPIUM BROM 0.5 MG/2.5ML INH SOL ONE (22:05)
[2022-11-12 02:17] VITALS: BP 108/69
[2022-11-12] MEDS: ALBUTEROL SULF 2.5 MG/0.5ML(0.5%) NEB SOLN NEB SCH ×6 (02:28→21:56)
[2022-11-12] MEDS: IPRATROPIUM BROM 0.5 MG/2.5ML INH SOL NEB SCH ×6 (02:28→21:56)
[2022-11-12 05:00] VITALS: BP 107/59
[2022-11-12] MEDS: methylPREDNISolone SOD SUCC 125 MG/2 ML VL IV SCH ×3 (06:00→22:00)
[2022-11-12] MEDS: LEVOTHYROXINE SODIUM 50 MCG TAB PO SCH (06:12)
[2022-11-12] MEDS: guaiFENesin-CODEINE Liq 5 ML UD PO PRN (06:12)
[2022-11-12] MEDS: ACETYLCYSTEINE 10 %(100MG/ML) SOL 4ML NEB SCH ×3 (06:25→21:56)
[2022-11-12] MEDS: Glucerna Carbsteady SHAKE Vanilla 8oz PO SCH ×2 (08:00→18:00)
[2022-11-12 09:00] VITALS: BP 114/75
[2022-11-12] MEDS: ASPirin 81 mg TAB PO SCH (09:02)
[2022-11-12] MEDS: DOCUSATE SOD 100 MG CAP PO SCH ×2 (09:02→22:09)
[2022-11-12] MEDS: PANTOPRAZOLE 40 MG TAB PO SCH (09:02)
[2022-11-12] MEDS: DOXYCYCLINE 100 MG TAB/CAP PO SCH ×2 (09:02→22:09)
[2022-11-12] MEDS: FUROSEMIDE 40 MG/4 ML VIAL IV SCH ×2 (09:02→22:00)
[2022-11-12 13:00] VITALS: BP 104/62
[2022-11-12 17:00] VITALS: BP 96/57
[2022-11-12 22:00] VITALS: BP 93/55
[2022-11-12] MEDS: ATORVASTATIN 20 MG TAB PO SCH (22:09)
[2022-11-12] MEDS: ACETAMINOPHEN 325 MG TAB PO PRN (23:21)
[2022-11-13] MEDS: ALBUTEROL SULF 2.5 MG/0.5ML(0.5%) NEB SOLN NEB SCH ×6 (01:56→22:23)
[2022-11-13] MEDS: IPRATROPIUM BROM 0.5 MG/2.5ML INH SOL NEB SCH ×6 (01:56→22:23)
[2022-11-13 05:00] VITALS: BP 105/65
[2022-11-13] MEDS: methylPREDNISolone SOD SUCC 125 MG/2 ML VL IV SCH (05:58)
[2022-11-13] MEDS: LEVOTHYROXINE SODIUM 50 MCG TAB PO SCH (06:01)
[2022-11-13] MEDS: ACETYLCYSTEINE 10 %(100MG/ML) SOL 4ML NEB SCH ×3 (07:32→22:24)
[2022-11-13 08:00] VITALS: BP 105/66
[2022-11-13 08:10] VITALS: BP 105/66
[2022-11-13] MEDS: DOXYCYCLINE 100 MG TAB/CAP PO SCH ×2 (10:08→22:06)
[2022-11-13] MEDS: FUROSEMIDE 40 MG/4 ML VIAL IV SCH ×2 (10:08→22:06)
[2022-11-13] MEDS: DOCUSATE SOD 100 MG CAP PO SCH ×2 (10:08→22:06)
[2022-11-13] MEDS: ASPirin 81 mg TAB PO SCH (10:09)
[2022-11-13] MEDS: Glucerna Carbsteady SHAKE Vanilla 8oz PO SCH ×2 (10:09→18:25)
[2022-11-13] MEDS: PANTOPRAZOLE 40 MG TAB PO SCH (10:13)
[2022-11-13] MEDS: ACETAMINOPHEN 325 MG TAB PO PRN ×2 (10:14→22:27)
[2022-11-13 12:00] VITALS: BP 99/60
[2022-11-13 16:00] VITALS: BP 96/64
[2022-11-13] MEDS: guaiFENesin-CODEINE Liq 5 ML UD PO PRN (20:17)
[2022-11-13 21:30] VITALS: BP 101/64
[2022-11-13] MEDS: DexAMETHasone SOD PHOS 10MG/1ML VIAL INJ IV SCH (22:06)
[2022-11-13] MEDS: ATORVASTATIN 20 MG TAB PO SCH (22:06)
[2022-11-14] MEDS: ALBUTEROL SULF 2.5 MG/0.5ML(0.5%) NEB SOLN NEB SCH ×6 (02:23→22:21)
[2022-11-14] MEDS: IPRATROPIUM BROM 0.5 MG/2.5ML INH SOL NEB SCH ×6 (02:23→22:21)
[2022-11-14 05:00] VITALS: BP 104/64
[2022-11-14] MEDS: LEVOTHYROXINE SODIUM 50 MCG TAB PO SCH (05:42)
[2022-11-14] MEDS: ACETYLCYSTEINE 10 %(100MG/ML) SOL 4ML NEB SCH ×3 (07:17→22:20)
[2022-11-14 08:10] VITALS: BP 108/59
[2022-11-14 08:38] VITALS: BP 108/59
[2022-11-14] MEDS: DexAMETHasone SOD PHOS 10MG/1ML VIAL INJ IV SCH ×2 (09:39→21:32)
[2022-11-14] MEDS: Glucerna Carbsteady SHAKE Vanilla 8oz PO SCH ×2 (09:39→18:12)
[2022-11-14] MEDS: ASPirin 81 mg TAB PO SCH (09:40)
[2022-11-14] MEDS: FUROSEMIDE 40 MG/4 ML VIAL IV SCH ×2 (09:40→21:30)
[2022-11-14] MEDS: PANTOPRAZOLE 40 MG TAB PO SCH (09:40)
[2022-11-14] MEDS: DOCUSATE SOD 100 MG CAP PO SCH ×2 (09:40→21:31)
[2022-11-14] MEDS: DOXYCYCLINE 100 MG TAB/CAP PO SCH ×2 (09:40→21:31)
[2022-11-14] MEDS ORDERED: predniSONE 20 MG TAB PO SCH (10:00)
[2022-11-14 13:00] VITALS: BP 115/66
[2022-11-14 17:00] VITALS: BP 108/65
[2022-11-14] MEDS: ATORVASTATIN 20 MG TAB PO SCH (21:31)
[2022-11-14 22:00] VITALS: BP 114/63
[2022-11-15] VITALS (7 sets, daily range): BP systolic 107–114; BP diastolic 49–63
[2022-11-15] MEDS: ALBUTEROL SULF 2.5 MG/0.5ML(0.5%) NEB SOLN NEB SCH ×5 (02:06→19:13)
[2022-11-15] MEDS: IPRATROPIUM BROM 0.5 MG/2.5ML INH SOL NEB SCH ×5 (02:06→19:14)
[2022-11-15] MEDS: LEVOTHYROXINE SODIUM 50 MCG TAB PO SCH (06:00)
[2022-11-15] MEDS: ACETYLCYSTEINE 10 %(100MG/ML) SOL 4ML NEB SCH ×2 (06:13→14:19)
[2022-11-15] MEDS: FUROSEMIDE 40 MG/4 ML VIAL IV SCH (09:48)
[2022-11-15] MEDS: DOCUSATE SOD 100 MG CAP PO SCH (09:48)
[2022-11-15] MEDS: DexAMETHasone SOD PHOS 10MG/1ML VIAL INJ IV SCH (09:48)
[2022-11-15] MEDS: PANTOPRAZOLE 40 MG TAB PO SCH (09:48)
[2022-11-15] MEDS: ASPirin 81 mg TAB PO SCH (09:48)
[2022-11-15] MEDS: DOXYCYCLINE 100 MG TAB/CAP PO SCH (09:48)
[2022-11-15] MEDS: Glucerna Carbsteady SHAKE Vanilla 8oz PO SCH ×2 (09:53→18:49)
== END 2022-11-15 20:33 | DRG 133 ==
LOC: ER 09:50 → EDBD 09:50 → TELE 14:34 → TELE-EAST 23:31 → EAST 10-28 14:44
PROVIDERS: ADMIT Registered Nurse; ATTEND Internal Medicine
DX: J96.01 Acute respiratory failure with hypoxia (principal); J69.0 Pneumonitis due to inhalation of food and vomit; I11.0 Hypertensive heart disease with heart failure; J15.7 Pneumonia due to Mycoplasma pneumoniae; J47.0 Bronchiectasis with acute lower respiratory infection; I50.22 Chronic systolic (congestive) heart failure; E44.0 Moderate protein-calorie malnutrition; J84.9 Interstitial pulmonary disease, unspecified; E66.01 Morbid (severe) obesity due to excess calories; Z68.30 Body mass index [BMI] 30.0-30.9, adult; Z20.822 Contact with and (suspected) exposure to COVID-19; E78.00 Pure hypercholesterolemia, unspecified; K59.00 Constipation, unspecified; J98.11 Atelectasis; Z75.1 Person awaiting admission to adequate facility elsewhere; Z79.82 Long term (current) use of aspirin; Z82.49 Family history of ischemic heart disease and other diseases of the circulatory system; E03.9 Hypothyroidism, unspecified
CPT/HCPCS: 36415; 36600; 71045; 71250; 71275; 80048; 80053; 80061; 80202; 82805; 83036; 83880; 84439; 84443; 84481; 84484; 85025; 85379; 86141; 86738; 87040; 87070; 87081; 87205; 87278; 87426; 87804; 93005; 93306; 93970; 94640; 94668; 97110; 97116; 97163; 97530; 99291; C9113; G0378; J0696; J1100; J2185; J2543; J3490